=== PATIENT | female | born 2005 | race Caucasian/White ===

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

== ENCOUNTER 2024-06-05 12:44 | Emergency (ER) | payer OTHER, SELFPAY ==
--- NOTE | 2024-06-05 12:49 | ED_ITS ---
HPI - Female Genitourinary General Chief complaint: Urogenital-Female Stated complaint: std testing Time Seen by Provider: 06/05/24 13:05 Source: patient and RN notes reviewed Mode of arrival: ambulatory Limitations: no limitations History of Present Illness ED Provider: Mami Painting PA-C HPI Narrative: This is a 19-year-old female who presents emergency department with complaints of abnormal vaginal discharge x4 days. Patient states that she has noticed some dysuria, urinary frequency and urgency as well as some abnormal vaginal discharge. She states that the vaginal discharge will be white and clear intermittently. She states that she tried boric acid for her symptoms several days ago however does not notice an improvement. She states that her last menses was 2 weeks ago and was normal. Denies any fevers, chills, abdominal pain, nausea, vomiting or diarrhea. She does report she has a new sexual partner. She states that she did go to a urgent care office where she was told she may have a urinary tract infection and sent over a antibiotic which she did not start. No other complaints or concerns at this time. MD elicited complaint: vaginal discharge and possible STD Pertinent past history: STI/STD Onset (ago): day(s) Vaginal discharge: white Vaginal bleeding: none Urinary symptoms: Dysuria, Urgency and Frequency Associated symptoms: denies other symptoms Treatment prior to arrival: OTC vaginal cream Sexual activity: Yes and New Sexual Partners Patient : No Date of Last Menstrual Period: 05/20/24 Related Data Home Medications ?Medication ?Instructions ?Recorded ?Confirmed ondansetron 4 mg disintegrating 4 mg PO Q8H PRN Nausea 05/27/23 05/27/23 tablet Previous Rx's ?Medication ?Instructions ?Recorded doxycycline hyclate 100 mg capsule 100 mg PO BID 7 days #13 caps 06/05/24 metronidazole 500 mg tablet 500 mg PO BID 7 days #14 tabs 06/05/24 Allergies Allergy/AdvReac Type Severity Reaction Status Date / Time No Known Allergies Allergy Verified 06/05/24 12:55 Review of Systems Review of Systems: Yes all other systems are reviewed and are negative Constitutional: Constitutional: Reports as per [facility] Past Medical History Medical History Asthma Date of Last Menstrual Period: 05/20/24 Social History Social History Advance Directives: No Advance Directives Information Provided: Yes Patient : No Physical Exam Vital Signs: Vital Signs: Last Vital Signs Temp 97.8 F 06/05/24 16:23 Pulse 84 06/05/24 16:23 Resp 16 06/05/24 16:23 BP 114/70 06/05/24 16:23 Pulse Ox 98 06/05/24 16:23 O2 Del Method Room Air 06/05/24 16:23 BMI result Body Mass Index 21.2 Const: General: cooperative, comfortable and no acute distress Orientation/consciousness: patient oriented x3 Limitations: no limitations HEENT: Head: Yes normal to inspection, Yes normocephalic and Yes atraumatic Ears: hearing grossly normal bilaterally General nose exam: Normal external nose present Face and sinus: Yes normal facial exam Mouth: Normal oral and palatal mucosa present, oropharynx normal and moist mucous membranes Throat: Yes posterior oropharynx normal Eyes: General: appearance normal, both eyes and all related structures Eyelids: Yes eyelids normal Conjunctivae: conjunctivae normal Sclerae: sclerae normal Pupils: Equal, round and reactive pupils present EOM: EOMs intact bilaterally Neck: Neck: Yes normal visual inspection, Yes full ROM and Yes no lymphadenopathy Lymphatic: no lymphadenopathy noted Chest: Chest palpation & inspection: normal inspection of the chest Resp: Effort & Inspection: normal respiratory effort and able to speak in complete sentences Auscultation: clear to auscultation bilaterally, no crackles, no rales, no rhonchi and no wheezes Cardio: Rate: regular rate Rhythm: regular rhythm Heart sounds: S1 normal heart sound present and S2 normal heart sound present GI: Other: Abdomen is soft, nontender, nondistended Inspection: Yes normal to inspection : Other: Pelvic exam performed with Belkis Govea RN present at all times. Speculum Exam - Vagina: normal appearance of the vagina, normal palpation and abnormal vaginal discharge white and malodorous Speculum Exam - Cervix: normal appearance of the cervix, normal palpation, Cervical os closed and nontender Bimanual exam- vagina & uterus: normal palpation, normal palpation and No Cervical tenderness present Bimanual Exam- Adnexa, other: normal adnexae OB/external & speculum: external exam normal Skin: General skin exam: no rashes or lesions noted Trauma: no lacerations or abrasions Wounds: no wounds Neuro: General: patient oriented x3 and moves all extremities Cranial nerves: Yes Equal, round and reactive pupils present Extrem: General: Yes normal to inspection Right upper extremity: normal to inspection Left upper extremity: normal to inspection Right lower extremity: normal to inspection Left lower extremity: normal to inspection Course Course Course Narrative: This is a Rapid Medical Exam performed in triage by Pamella Tavarez PA-C. Full HPI, ROS and PE to be performed by primary ED provider. 19 year-old F w/ PMHx Nexplanon presenting to the ED c/o concern for STI, went to [facility] yesterday & told she had UTI and WBC in urine and might be something more. Was Rx abx but has not picked them up yet. Admits to discharge, denies bleeding or pain. Admits to new sexual partner. Patient is interested in empiric treatment PE: nontoxic appearing, ambulating with steady gait Plan: STI testing, UA Reevaluation(s) Reevaluation #1: Gonorrhea and chlamydia test came back and is positive. Called patient to inform her. She is aware that she needs to tell all of her sexual partners. Patient understands and agrees with plan. Given strict return precautions, also advised her to repeat testing at [facility] to see if she has cleared the infection. She understands. No additional questions. Time: 17:24 Medications Administered Discontinued Medications Generic Name Dose Route Start Last Admin Trade Name Freq PRN Reason Stop Dose Admin Ceftriaxone Sodium 500 mg/ 0 mg 06/05/24 15:51 06/05/24 16:18 Lidocaine HCl 1 ml IM 06/05/24 15:52 500 kit ONCE ONE Administration Medical Decision Making Medical Decision Making [facility] Narrative: This is a 19-year-old female who presents emergency department with complaints of vaginal discharge, urinary frequency, urgency. On arrival, vital signs within normal limits. She was seen by an urgent care yesterday and was told that she should get tested for further STIs given symptoms. They treated her for urinary tract infection at that time. She states that she is nervous as she has a new partner. Abdomen is soft and nontender, pelvic examination revealing white malodorous vaginal discharge. She has no cervical motion tenderness. No evidence of PID. Differential diagnoses include bacterial vaginosis, chlamydia, gonorrhea, urinary tract infection, PID. Patient would like to be prophylactically treated for STIs. Bacterial vaginosis panel was resulted prior to her departure. Will also treat with Flagyl. Differential Diagnosis Differential Diagnoses: The differential diagnosis associated with the presentation includes See above Admission/Observation Consideration of admission/observation: Escalation of care including admission/observation considered Escalation of care including admission/observation considered however given workup today not warranted at this time. Lab Data MDM Lab Attestation statement: I reviewed the patient's lab results. Labs: Lab Results 06/05/24 Range/Units 14:47 Urine Color Dark Yellow Urine Appearance Cloudy Urine pH 6.0 (5.0-9.0) Ur Specific [place] 1.025 (1.005-1.025) Urine Protein Trace (Neg-Trace) mg/dL Urine Glucose (UA) Negative (Negative) mg/dL Urine Ketones Trace (Negative) mg/dL Urine Blood Negative (Negative) Urine Nitrite Negative (Negative) Ur Leukocyte Esterase Moderate (2+) H (Negative) Urine RBC 0-2 (0-2) /HPF Urine WBC 11-20 H (0-5) /HPF Ur Squamous Epith Cells 3-5 (0-2) /HPF Urine Bacteria 1+ (None Seen) Hyaline Casts 0-2 (0-2) /LPF Urine Test NEGATIVE (NEGATIVE) Chlam trachomat DNA PCR DETECTED A (Not Detect.) N.gonorrhoeae DNA (PCR) DETECTED A (Not Detect.) T. vaginalis (PCR) NOT DETECTED (Not Detect) Bact Vaginosis (PCR) POSITIVE A (Negative) C. krusei/glabrata (PCR) NOT DETECTED (Not Detect) Tresa group (PCR) NOT DETECTED (Not Detect) Discharge Plan Discharge Clinical Impression: Possible exposure to STI, Bacterial vaginosis Patient Disposition: Home, Self-Care Instructions: Bacterial Vaginosis (ED), Postexposure Prophylaxis (ED) Additional Instructions: You were seen in the emergency department for vaginal and urinary symptoms. You did test positive for bacterial vaginosis. This is a non STI related infection. Your gonorrhea and chlamydia testing is still pending. You are not . We will call you with any abnormal results from your testing performed today. Your physical exam was normal. Drink plenty of fluids get plenty of rest. If any new or worsening symptoms occur including but not limited to worsening pain, worsening discharge, please return for re-evaluation. We gave you an injection called ceftriaxone > this is an antibiotic to treat for gonorrhea and chlamydia.. I sent over doxycycline, this is a antibiotic that also treats gonorrhea and chlamydia. Take this twice a day for the next 7 days. Start this today. I also sent over metronidazole, please take this twice a day for the next 7 days. Start this today. Do not drink alcohol while taking this. The medication that was sent over by your other doctor yesterday, please start this tomorrow. This treats for a urinary tract infection. Drink plenty of fluids get plenty of rest. Eat yogurt or any probiotic containing foods as you will be on multiple antibiotics. Prescriptions: New doxycycline hyclate 100 mg capsule 100 mg PO BID 7 Days Qty: 13 0RF metronidazole 500 mg tablet 500 mg PO BID 7 Days Qty: 14 0RF No Action ondansetron 4 mg tablet,disintegrating 4 mg PO Q8H PRN (Reason: Nausea) Interventions: ED Discharge Assessment Last Done: 06/05/24 16:23 Discharge Date/Time: 06/05/24 16:23 Print Language: Sudanese
[2024-06-05 12:50] VITALS: PULSE 99; RESP 18; TEMP 36.4; O2SAT 98; BMI 21.2
[2024-06-05 14:55] LABS: Appearance Urine Cloudy; Color Urine Dark Yellow; Glucose Urine UA Negative (Negative); Leukocyte Esterase Urine Moderate (2+) (Negative); Nitrite Urine Negative (Negative); Specific Gravity - Urine 1.025 (1.005-1.025); UMIC TRIGGER UACC YES; UPreg QC Valid YES; Urine Blood Negative (Negative); Urine Ketones Trace mg/dL (Negative); Urine Pregnancy NEGATIVE (NEGATIVE); Urine Protein Trace mg/dL (Neg-Trace)
[2024-06-05 15:37] LABS: Bacteria Urine 1+ (None Seen); Hyaline Casts Urine 0-2 /LPF (0-2); RBC Urine 0-2 /HPF (0-2); UACC Culture Trigger YES
[2024-06-05 15:59] LABS: Bacterial Vaginosis PCR POSITIVE (Negative); Candida Group PCR NOT DETECTED (Not Detect); Candida glab krusei PCR NOT DETECTED (Not Detect); Trichomonas vaginalis PCR NOT DETECTED (Not Detect)
[2024-06-05] MEDS: cefTRIAXone sodium 500 MG, Lidocaine HCl 1 % MPF 1 ML IM (16:18)
[2024-06-05 16:22] VITALS: BP 114/70; PULSE 84; RESP 16; TEMP 36.6; O2SAT 98
[2024-06-05 16:23] VITALS: BP 114/70; PULSE 84; RESP 16; TEMP 36.6; O2SAT 98
[2024-06-05 16:29] LABS: CT PCR DETECTED (Not Detect.); NG PCR DETECTED (Not Detect.)
== END 2024-06-05 16:23 | disposition home or self-care (01) ==
PROVIDERS: Physician Assistant; Emergency Provider Emergency Medicine
DX: N76.0 Acute vaginitis (principal); A56.02 Chlamydial vulvovaginitis; A54.02 Gonococcal vulvovaginitis, unspecified
CPT/HCPCS: 0352U; 81001; 81025; 87086; 87491; 87591; 96372; 99283; 99284; J0696

== ENCOUNTER 2025-01-05 08:21 | Emergency (ER) | payer OTHER, SELFPAY ==
--- NOTE | ~2025-01-05 | CT_ITS ---
EXAMINATION: CT ABDOMEN PELVIS WITHOUT IV CONTRAST HISTORY: L flank pain COMPARISON: There are no prior studies for comparison. TECHNIQUE: CT scan of the abdomen and pelvis was performed without contrast using standard departmental protocol. Coronal and sagittal reformatted images were generated and reviewed. Oral contrast material was not administered per department protocol. This CT exam was performed with one or more of the following dose reduction techniques: automated exposure control, adjustment of the mA and/or kV according to patient size, use of iterative reconstruction technique. DLP: 387 mGy-cm FINDINGS: LOWER CHEST: The visualized lung bases are clear. There is no pleural effusion. CARDIOVASCULATURE: The heart is normal in size. There is no pericardial effusion. LIVER: The liver is normal in size and contour. The liver has an unremarkable unenhanced appearance. GALLBLADDER / BILE DUCTS: The gallbladder is unremarkable. There is no intra or extrahepatic biliary ductal dilatation. SPLEEN: The spleen is normal in size and has an unremarkable unenhanced appearance. PANCREAS: The pancreas has an unremarkable unenhanced appearance. ADRENAL GLANDS: Unremarkable. KIDNEYS/RETROPERITONEUM: No renal or ureteral calculi are identified. There is no hydronephrosis or hydroureter. LYMPH NODES: No retroperitoneal lymphadenopathy is identified in the abdomen or pelvis. VASCULATURE: The abdominal aorta is normal in caliber. MESENTERY/PERITONEUM: No free fluid. No masses. There is no free intraperitoneal gas. STOMACH: The stomach is unremarkable. SMALL BOWEL: The small bowel is normal in caliber. COLON: The colon is unremarkable. APPENDIX: Normal. URINARY BLADDER/PELVIC ORGANS: The urinary bladder is unremarkable. The uterus and ovaries have an unremarkable unenhanced appearance. BONES / SOFT TISSUES: No suspicious bony or soft tissue abnormalities. CT/CT abdomen pelvis wo IV con IMPRESSION: No evidence of nephrolithiasis or ureteral obstruction. Unremarkable unenhanced CT of the abdomen and pelvis. Electronically signed by: Davin Bond MD 01/05/2025 12:19 PM EDT
[2025-01-05 08:30] VITALS: BP 112/58; PULSE 74; RESP 16; TEMP 36.6; O2SAT 100; BMI 22.3
--- NOTE | 2025-01-05 09:02 | ED_ITS ---
HPI - Nausea/Vomiting/Diarrhea General Chief complaint: Nausea/Vomiting/Diarrhea Stated complaint: Abd pain L side, vomiting Time Seen by Provider: 01/05/25 09:01 Source: patient and RN notes reviewed Mode of arrival: ambulatory Limitations: no limitations History of Present Illness ED Provider: Mami Painting PA-C HPI Narrative: This is a 19-year-old female, with a history of asthma, who presents to the emergency room for evaluation of multiple complaints. Patient states that since Saturday she has had nausea, vomiting, diarrhea, cough, congestion, left-sided abdominal pain, as well as increased vaginal discharge. Patient does report that she was sexually active with a ?fairly new? individual. She states that 1 month ago she went to an urgent care where she was tested for STIs which were all negative, however she did receive treatment for this. She reports some fevers, denies any chills, chest pain, shortness of breath, constipation. No recent travel. Denies any sick contacts. No recent food exposures. No other complaints or concerns at this time. MD elicited complaint: nausea, vomiting and diarrhea Associated nausea: Yes Associated abdominal pain: Yes Location of pain: L flank Pain consistency: constant Severity: moderate Quality: aching Exacerbating factors: none Relieving factors: none Associated symptoms: denies other symptoms Related Data Home Medications ?Medication ?Instructions ?Recorded ?Confirmed ondansetron 4 mg disintegrating 4 mg PO Q8H PRN Nausea 05/27/23 05/27/23 tablet Previous Rx's ?Medication ?Instructions ?Recorded doxycycline hyclate 100 mg capsule 100 mg PO BID 7 days #13 caps 06/05/24 metronidazole 500 mg tablet 500 mg PO BID 7 days #14 tabs 06/05/24 acetaminophen 500 mg tablet 1,000 mg (2 x 500 mg) PO Q6H PRN 01/05/25 (Tylenol Extra Strength) fever or pain #30 tabs ibuprofen 600 mg tablet 600 mg PO Q6H PRN fever or pain 01/05/25 #30 tabs metronidazole 500 mg tablet 500 mg PO BID 7 days #14 tabs 01/05/25 ondansetron 4 mg disintegrating 4 mg PO Q6H PRN nausea and 01/05/25 tablet vomiting #12 tabs Allergies Allergy/AdvReac Type Severity Reaction Status Date / Time No Known Allergies Allergy Verified 03/18/25 08:31 Review of Systems 2 Review of Systems: Yes all other systems are reviewed and are negative Constitutional: Constitutional: Reports as per HPI Gastrointestinal: Gastrointestinal: Reports nausea PMFSH Past Medical History Medical History Asthma Physical Exam 2 Vital Signs: Vital Signs: Last Vital Signs Temp 97.2 F 01/05/25 13:18 Pulse 72 01/05/25 13:18 Resp 14 01/05/25 13:18 BP 102/58 L 01/05/25 13:18 Pulse Ox 99 01/05/25 13:18 O2 Del Method Room Air 01/05/25 13:18 BMI result Body Mass Index 22.3 Const: General: cooperative, comfortable and no acute distress O rientation/consciousness: patient oriented x3 Limitations: no limitations HEENT: Head: Yes normal to inspection, Yes normocephalic and Yes atraumatic Ears: hearing grossly normal bilaterally General nose exam: Normal external nose present Face and sinus: Yes normal facial exam Mouth: Normal oral and palatal mucosa present, oropharynx normal and moist mucous membranes Throat: Yes posterior oropharynx normal Eyes: General: appearance normal, both eyes and all related structures E yelids: Yes eyelids normal Conjunctivae: conjunctivae normal Sclerae: s clerae normal Pupils: Equal, round and reactive pupils present EOM: EOMs intact bilaterally Neck: Neck: Yes normal visual inspection, Yes full ROM and Yes no lymphadenopathy Lymphatic: no lymphadenopathy noted Chest: Chest palpation & inspection: normal inspection of the chest Resp: Effort & Inspection: normal respiratory effort and able to speak in complete sentences Auscultation: clear to auscultation bilaterally, no crackles, no rales, no rhonchi and no wheezes Cardio: Rate: regular rate Rhythm: regular rhythm Heart sounds: S1 normal heart sound present and S2 normal heart sound present GI: Other: Abdomen is soft, with mild tenderness palpation in the left. Inspection: Yes normal to inspection : Other: No CVA tenderness. Pelvic examination performed with Cristino Heredia ED tech present at all times. General: Yes no CVA tenderness External Female Exam: normal external appearance Speculum Exam - Vagina: normal appearance of the vagina, normal palpation and abnormal vaginal discharge yellow (Slight) Speculum Exam - Cervix: normal appearance of the cervix and nontender Bimanual exam- vagina & uterus: normal bimanual exam, normal palpation, No Cervical tenderness present and non-tender Bimanual Exam- Adnexa, other: normal adnexae and no masses Back/Spine/Pelvis: Other: No tenderness palpation along the back. Back: no CVA tenderness Cervical Spine: normal cervical lordosis T horacic/Lumbar Spine: thoracic and lumbar spine normal to inspection Skin: General skin exam: no rashes or lesions noted Trauma: no lacerations or abrasions Wounds: no wounds Neuro: General: patient oriented x3 and moves all extremities Cranial nerves: Yes Equal, round and reactive pupils present Extrem: General: Yes normal to inspection Right upper extremity: normal to inspection Left upper extremity: normal to inspection Right lower extremity: normal to inspection Left lower extremity: normal to inspection Course Reevaluation(s) Reevaluation #1: Preliminary vaginal swabs revealing no yeast or Trichomonas. Urine returns, she has no leukocytosis, stable H&H, chemistry with no significant electrolyte derangement. Upreg negative. She tested negative for flu, RSV, COVID. CT abdomen and pelvis unremarkable. Urine showing moderate blood, trace leuk esterases, and rbc's. She has no urinary symptoms, will defer to urine culture for UTI treatment if this does come back positive. Symptoms may be attributed to bacterial vaginosis > however patient would like to defer treatment until she gets the swabs back. Discussed that if GC and chlamydia does come back positive she would need to return back to the emergency room for treatment. Encouraged increase in hydration, will also discharged on Zofran as needed. Given strict return precautions. She understands and agrees with plan. Patient stable for discharge. Time: 12:25 Reevaluation #2: Swabs returned, negative for gonorrhea, chlamydia, Trichomonas. She tested positive for bacterial vaginosis. Sent over metronidazole. Left message on voicemail. Time: 17:26 Medications Administered Discontinued Medications Generic Name Dose Route Start Last Admin Trade Name Freq PRN Reason Stop Dose Admin Acetaminophen 975 mg 01/05/25 09:22 01/05/25 09:48 Acetaminophen 325 Mg Tablet PO 01/05/25 09:23 975 mg ONCE ONE Administration Ondansetron HCl 4 mg 01/05/25 09:22 01/05/25 09:48 Ondansetron Odt 4 Mg Tab.Rapdis TRANSLINGU 01/05/25 09:23 4 mg ONCE ONE Administration Potassium Chloride 40 meq 01/05/25 10:56 01/05/25 11:09 Potassium Chloride Er 20 Meq Tab.Er.Prt PO 01/05/25 10:57 40 meq ONCE ONE Administration Medical Decision Making Medical Decision Making [facility] Narrative: This is a 19-year-old female who presents emergency department with multiple complaints. Patient reports that she has had headache, nausea, vomiting, diarrhea, and left-sided flank pain x3 days. She also reports that she has had increased vaginal discharge. She does report fairly new partner. She states that [facility] which were all negative. She states that over the last several days she has had increased vaginal drainage. Differential diagnoses include pelvic inflammatory disease, bacterial vaginosis, vaginitis, STI, obstructive uropathy, UTI. She has no CVA tenderness, no back pain, she does have mild left flank pain. Will obtain labs, UA, pelvic examination, abdomen and pelvis. She was eating and drinking however does report some nausea, will medicate with Tylenol and Zofran. Differential Diagnosis Differential Diagnoses: The differential diagnosis associated with the presentation includes See above Lab Data [facility] Lab Attestation statement: I reviewed the patient's lab results. See course comment 01/05/25 09:21 01/05/25 09:21 Labs: Lab Results 01/05/25 01/05/25 Range/Units 09:21 10:32 WBC 7.6 (4.8-10.8) X10*3/uL RBC 4.50 (4.20-5.50) X10*6/uL Hgb 14.4 (12.0-16.0) g/dl Hct 41.4 (37.0-47.0) % MCV 92.0 (80.0-98.0) fL MCH 32.0 (27.0-33.0) pg MCHC 34.8 (31.0-35.0) g/dl RDW 11.7 (11.0-16.0) % Plt Count 227 D (160-400) X10*3/uL MPV 9.2 L (9.4-12.3) fL Immature Gran % (Auto) 0.3 (0.0-0.4) % Neut % (Auto) 70.1 (45-73) % Lymph % (Auto) 20.0 (20-40) % [place] % (Auto) 8.0 (2-11) % Eos % (Auto) 1.3 (0-4) % Baso % (Auto) 0.3 (0-2) % Lymph # (Auto) 1.5 (1.2-4.9) X10*3/uL [place] # (Auto) 0.6 (0.1-1.2) X10*3/uL Eos # (Auto) 0.1 (0.0-0.4) X10*3/uL Baso # (Auto) 0.0 (0.0-0.2) X10*3/uL Abs Immat Gran (auto) 0.02 (0.00-0.03) X10*3/uL Absolute Neuts (auto) 5.3 (2.0-8.3) x10*3/uL Absolute Nucleated RBC 0.000 (0.0-0.012) X10*3/uL Nucleated RBC % (auto) 0.0 (0.0-0.2) /100WBC Sodium 142 (135-145) mmol/L Potassium 3.2 L (3.3-5.1) mmol/L Chloride 108 (96-108) mmol/L Carbon Dioxide 24 (22-29) mmol/L Anion Gap 13 (12-20) BUN 7 L (9-16) mg/dL Creatinine 0.71 (0.5-1.4) mg/dL Estim Creat Clear Calc 118.3 Estimated GFR > 60 Random Glucose 91 (60-115) mg/dL Calcium 8.7 (8.4-10.2) mg/dL Total Bilirubin 0.5 (0.0-1.0) mg/dL AST 17 (5-31) U/L ALT 10 (0-31) U/L Alkaline Phosphatase 75 (39-117) U/L Total Protein 7.4 (6.5-8.0) g/dL Albumin 4.0 (3.5-5.0) g/dL Urine Color Dark Yellow Urine Appearance Clear Urine pH 6.0 (5.0-9.0) Ur Specific [place] >= 1.030 H (1.005-1.025) Urine Protein 30 (1+) H (Neg-Trace) mg/dL Urine Glucose (UA) Negative (Negative) mg/dL Urine Ketones 15 (Negative) mg/dL Urine Blood Moderate (2+) H (Negative) Urine Nitrite Negative (Negative) Ur Leukocyte Esterase Trace H (Negative) Urine RBC 3-5 H (0-2) /HPF Urine WBC 0-5 (0-5) /HPF Ur Squamous Epith Cells 3-5 (0-2) /HPF Urine Bacteria 1+ (None Seen) Hyaline Casts 3-5 (0-2) /LPF Urine Test NEGATIVE (NEGATIVE) Chlam trachomat DNA PCR NOT DETECTED (Not Detect.) Influenza Type A (PCR) NEGATIVE (Negative) Influenza Type B (PCR) NEGATIVE (Negative) N.gonorrhoeae DNA (PCR) NOT DETECTED (Not Detect.) RSV RNA Qual (PCR) NEGATIVE (Negative) SARS-CoV-2 RNA (RT-PCR) NEGATIVE (Negative) T. vaginalis (PCR) NOT DETECTED (Not Detect) Bact vaginosis (PCR) POSITIVE A (Negative) C. krusei/glabrata (PCR) NOT DETECTED (Not Detect) Tresa group (PCR) NOT DETECTED (Not Detect) Radiology Impression Discussion of test interpretation with radiology: I have reviewed the radiologist's reading. Radiologist Impression: Report Number: [id number]: Total DLP = 387.00 mGy-cm EXAMINATION: CT ABDOMEN PELVIS WITHOUT IV CONTRAST HISTORY: L flank pain COMPARISON: There are no prior studies for comparison. TECHNIQUE: CT scan of the abdomen and pelvis was performed without contrast using standard departmental protocol. Coronal and sagittal reformatted images were generated and reviewed. Oral contrast material was not administered per department protocol. This CT exam was performed with one or more of the following dose reduction techniques: automated exposure control, adjustment of the mA and/or kV according to patient size, use of iterative reconstruction technique. DLP: 387 mGy-cm FINDINGS: LOWER CHEST: The visualized lung bases are clear. There is no pleural effusion. CARDIOVASCULATURE: The heart is normal in size. There is no pericardial effusion. LIVER: The liver is normal in size and contour. The liver has an unremarkable unenhanced appearance. GALLBLADDER / BILE DUCTS: The gallbladder is unremarkable. There is no intra or extrahepatic biliary ductal dilatation. SPLEEN: The spleen is normal in size and has an unremarkable unenhanced appearance. PANCREAS: The pancreas has an unremarkable unenhanced appearance. ADRENAL GLANDS: Unremarkable. KIDNEYS/RETROPERITONEUM: No renal or ureteral calculi are identified. There is no hydronephrosis or hydroureter. LYMPH NODES: No retroperitoneal lymphadenopathy is identified in the abdomen or pelvis. VASCULATURE: The abdominal aorta is normal in caliber. MESENTERY/PERITONEUM: No free fluid. No masses. There is no free intraperitoneal gas. STOMACH: The stomach is unremarkable. SMALL BOWEL: The small bowel is normal in caliber. COLON: The colon is unremarkable. APPENDIX: Normal. URINARY BLADDER/PELVIC ORGANS: The urinary bladder is unremarkable. The uterus and ovaries have an unremarkable unenhanced appearance. BONES / SOFT TISSUES: No suspicious bony or soft tissue abnormalities. CT/CT abdomen pelvis wo IV con IMPRESSION: No evidence of nephrolithiasis or ureteral obstruction. Unremarkable unenhanced CT of the abdomen and pelvis. Electronically signed by: Davin Bond MD 01/05/2025 12:19 PM EDT RP Dictated By: Davin Bond Discharge Plan Discharge Clinical Impression: Nausea & vomiting, Bacterial vaginosis Patient Disposition: Home, Self-Care Instructions: Bacterial Vaginosis (ED), Acute Nausea and Vomiting (ED) Additional Instructions: You were seen in the emergency department today. Your symptoms may be caused by a virus. Your workup today was reassuring. We will call you if any of your results are positive. Your potassium was slightly low, we gave you a dose of potassium here in the emergency department. You tested negative for COVID, flu, RSV. Your CT scan does not show any abnormalities. Drink plenty of fluids and get plenty of rest. Your urine does appear to be contaminated, we are holding off on treatment at this time as you would like to be called if this is positive. Please take Tylenol and or ibuprofen as needed. Please also take Zofran as needed for nausea. Prescriptions: New acetaminophen [Tylenol Extra Strength] 500 mg tablet 1,000 mg PO Q6H PRN (Reason: fever or pain) Qty: 30 0RF ibuprofen 600 mg tablet 600 mg PO Q6H PRN (Reason: fever or pain) Qty: 30 0RF ondansetron 4 mg tablet,disintegrating 4 mg PO Q6H PRN (Reason: nausea and vomiting) Qty: 12 0RF metronidazole 500 mg tablet 500 mg PO BID 7 Days Qty: 14 0RF No Action ondansetron 4 mg tablet,disintegrating 4 mg PO Q8H PRN (Reason: Nausea) doxycycline hyclate 100 mg capsule 100 mg PO BID 7 Days Qty: 13 0RF metronidazole 500 mg tablet 500 mg PO BID 7 Days Qty: 14 0RF Stand Alone Forms: Work/School Release Interventions: ED Discharge Assessment Last Done: 01/05/25 13:18 Discharge Date/Time: 01/05/25 13:18 Print Language: Slovak
[2025-01-05 09:28] LABS: MANUAL DIFF FLAG NO
[2025-01-05 09:32] LABS: Appearance Urine Clear; Color Urine Dark Yellow; Glucose Urine UA Negative (Negative); Leukocyte Esterase Urine Trace (Negative); Nitrite Urine Negative (Negative); Specific Gravity - Urine >= 1.030 (1.005-1.025); UMIC TRIGGER UACC YES; Urine Blood Moderate (2+) (Negative); Urine Ketones 15 mg/dL (Negative); Urine Protein 30 (1+) mg/dL (Neg-Trace)
[2025-01-05 09:33] LABS: Basophils Percent Auto 0.3 % (0-2); Eosinophils Absolute Auto 0.1 X10*3/uL (0.0-0.4); Eosinophils Percent Auto 1.3 % (0-4); Hematocrit 41.4 % (37.0-47.0); Hemoglobin 14.4 g/dl (12.0-16.0); Imm Gran Abs Auto 0.02 X10*3/uL (0.00-0.03); Imm Gran Pct Auto 0.3 % (0.0-0.4); Lymphocytes Absolute Auto 1.5 X10*3/uL (1.2-4.9); Mean Corpuscular HGB Conc 34.8 g/dl (31.0-35.0); Mean Platelet Volume 9.2 fL (9.4-12.3); Monocytes Absolute Auto 0.6 X10*3/uL (0.1-1.2); Neutrophils Absolute Auto 5.3 x10*3/uL (2.0-8.3); Neutrophils Percent Auto 70.1 % (45-73); Platelet Count 227 X10*3/uL (160-400); Red Cell Distribution Width 11.7 % (11.0-16.0); White Blood Count 7.6 X10*3/uL (4.8-10.8)
[2025-01-05 09:35] LABS: UPreg QC Valid YES; Urine Pregnancy NEGATIVE (NEGATIVE)
[2025-01-05 09:46] LABS: Alanine Aminotransferase 10 U/L (0-31); Alkaline Phosphatase 75 U/L (39-117); Anion Gap 13 (12-20); Aspartate Amino Transferase 17 U/L (5-31); Bilirubin Total 0.5 mg/dL (0.0-1.0); Blood Urea Nitrogen 7 mg/dL (9-16); Calcium 8.7 mg/dL (8.4-10.2); Carbon Dioxide 24 mmol/L (22-29); Chloride 108 mmol/L (96-108); Creatinine Clr Calc Pharmacy 118.3; Estimated Glomerular Filt Rate > 60; Glucose Random 91 mg/dL (60-115); Potassium 3.2 mmol/L (3.3-5.1); Sodium 142 mmol/L (135-145); Total Protein 7.4 g/dL (6.5-8.0)
[2025-01-05 09:47] LABS: Bacteria Urine 1+ (None Seen); WBC Urine 0-5 /HPF (0-5)
[2025-01-05] MEDS: Ondansetron ODT 4 MG TAB.RAPDIS TRANSLINGU (09:48)
[2025-01-05] MEDS: Acetaminophen 325 MG TABLET 975 MG PO (09:48)
[2025-01-05 10:14] LABS: Influenza A PCR NEGATIVE (Negative); Influenza B PCR NEGATIVE (Negative); Resp Syncy Virus RNA Qual PCR NEGATIVE (Negative); SARS COV2 PCR INHOUSE NEGATIVE (Negative)
[2025-01-05] MEDS: Potassium Chloride ER 20 MEQ TAB.ER.PRT 40 MEQ PO (11:09)
[2025-01-05 12:28] VITALS: BP 102/58; PULSE 72; RESP 14; TEMP 36.2; O2SAT 99
[2025-01-05 13:18] VITALS: BP 102/58; PULSE 72; RESP 14; TEMP 36.2; O2SAT 99
[2025-01-05 13:47] LABS: Bacterial Vaginosis PCR POSITIVE (Negative); Candida Group PCR NOT DETECTED (Not Detect); Candida glab krusei PCR NOT DETECTED (Not Detect); Trichomonas vaginalis PCR NOT DETECTED (Not Detect)
[2025-01-05 14:19] LABS: CT PCR NOT DETECTED (Not Detect.); NG PCR NOT DETECTED (Not Detect.)
== END 2025-01-05 13:18 | disposition home or self-care (01) ==
PROVIDERS: Physician Assistant Medical; Emergency Provider Emergency Medicine Emergency Medical Services
DX: N76.0 Acute vaginitis (principal); R11.2 Nausea with vomiting, unspecified; R10.9 Unspecified abdominal pain; Z03.818 Encounter for observation for suspected exposure to other biological agents ruled out
CPT/HCPCS: 0241U; 36415; 74176; 80053; 81001; 81025; 81515; 85025; 87491; 87591; 99283; 99284

== ENCOUNTER → 2025-01-05 10:56 | Outpatient (BNV) | payer OTHER, SELFPAY | PROVIDERS: Emergency Provider Emergency Medicine Emergency Medical Services; Visit Provider Radiology Diagnostic Radiology | DX: R10.9 Unspecified abdominal pain (principal) | CPT/HCPCS: 74176 ==

== ENCOUNTER 2025-04-17 19:27 | Emergency (ER) | payer OTHER, SELFPAY ==
--- NOTE | 2025-04-17 19:30 | ED_ITS ---
HPI - Dental/Oral General Chief complaint: Abdominal Pain Stated complaint: wisdon teeth out 04/13 not feeling good on meds Time Seen by Provider: 04/17/25 19:31 Source: patient Mode of arrival: ambulatory Limitations: no limitations History of Present Illness ED Provider: Filomena Hudson APRN HPI Narrative: 20 yo female who had wisdom teeth removed on 04/13 and has been taking tylenol PRN, ibuprofen PRN, dexamethasone (5 day course) and amoxicillin (10 day course) here with complaints of upset stomach and nausea since taking her medication. She reports she has been taking them with applesauce but not much food. She denies nausea/vomiting/diarrhea/urinary changes/fevers/chills. Feels her teeth are healing well and her pain is well controlled. Related Data Home Medications ?Medication ?Instructions ?Recorded ?Confirmed ondansetron 4 mg disintegrating 4 mg PO Q8H PRN Nausea 05/27/23 05/27/23 tablet Previous Rx's ?Medication ?Instructions ?Recorded doxycycline hyclate 100 mg capsule 100 mg PO BID 7 day s #13 caps 06/05/24 metronidazole 500 mg tablet 500 mg PO BID 7 days #14 t abs 06/05/24 acetaminophen 500 mg tablet 1,000 mg (2 x 500 mg) PO Q 6H PRN 01/05/25 (Tylenol Extra Strength) fever or pain #30 tabs ibuprofen 600 mg tablet 600 mg PO Q6H PRN fever or p ain 01/05/25 #30 tabs metronidazole 500 mg tablet 500 mg PO BID 7 days #14 t abs 01/05/25 ondansetron 4 mg disintegrating 4 mg PO Q6H PRN nausea and 01/05/25 tablet vomiting #12 tabs omeprazole 20 mg capsule,delayed 20 mg PO DAILY #14 ca ps 04/17/25 release Allergies Allergy/AdvReac Type Severity Reaction Status Date / Time seafood Allergy Hives Verified 04/17/25 19:32 Review of Systems 2 Review of Systems: Yes all other systems are reviewed and are negative Constitutional: Constitutional: Reports no additional constitutional complaints, Denies body ache(s), Denies chills, Denies fever(s), Denies headache(s) and Denies weakness Eyes: Eyes: Reports no additional eye complaints and Denies change in vision ENT: Reports system reviewed and no additional complaints, except as documented, Denies dizziness, Denies headache(s), Denies nasal congestion, Denies nasal discharge and Denies neck pain Cardiovascular: Cardiovascular: Reports no additional cardiovascular complaints, Denies chest pain, Denies leg edema and Denies dyspnea Respiratory: Respiratory: Reports no additional respiratory complaints, Denies cough and Denies dyspnea Gastrointestinal: Gastrointestinal: Reports no additional gastrointestinal complaints, Reports abdominal pain, Denies diarrhea, Reports nausea and Denies vomiting Genitourinary: Genitourinary: Reports no additional female genitourinary complaints and Denies urinary incontinence Musculoskeletal: Musculoskeletal: Reports no additional musculoskeletal complaints, Denies back pain, Denies arthralgias, Denies joint swelling, Denies neck pain, Denies numbness and Denies tingling Integumentary/Breasts: Skin/Breast: Reports system reviewed and no additional complaints, except as docu and Denies rash Neurologic: Reports system reviewed and no additional complaints, except as documented, Denies Abnormal speech present, Denies dizziness, Denies headache(s), Denies numbness, Denies tingling and Denies weakness PMFSH Past Medical History Attestation statement: The following information was validated with the patient. Source: old records reviewed and nursing notes reviewed Medical History Asthma Social History Social History Advance Directives: No Advance Directives Information Provided: No Physical Exam 2 Vital Signs: Vital Signs: Last Vital Signs Temp 97.8 F 04/17/25 19:31 Pulse 108 H 04/17/25 19:31 Resp 16 04/17/25 19:31 BP 93/51 L 04/17/25 19:31 Pulse Ox 96 04/17/25 19:31 O2 Del Method Room Air 04/17/25 19:31 BMI result Body Mass Index 24.3 Const: General: cooperative, healthy appearing, comfortable and no acute distress Orientation/consciousness: patient oriented x3 Limitations: no limitations HEENT: Head: Yes normal to inspection Ears: hearing grossly normal bilaterally General nose exam: Normal external nose present Face and sinus: Yes normal facial exam Mouth: Normal oral and palatal mucosa present Teeth image: 1. healing incision 2. healing incision 3. healing incision 4. healing incision Throat: Yes posterior oropharynx normal Eyes: General: appearance normal, both eyes and all related structures P upils: Equal, round and reactive pupils present Neck: Neck: Yes normal visual inspection Chest: Chest palpation & inspection: normal inspection of the chest Resp: Effort & Inspection: normal respiratory effort Auscultation: clear to auscultation bilaterally Cardio: Rate: regular rate Rhythm: regular rhythm Peripheral pulses: P eripheral pulses 2+ throughout GI: Inspection: Yes normal to inspection Palpation (GI): Soft to palpation and nontender Auscultation: normal bowel sounds Back/Spine/Pelvis: Thoracic/Lumbar Spine: thoracic and lumbar spine normal to inspection Skin: General skin exam: no rashes or lesions noted Neuro: General: patient oriented x3, no focal motor deficits and normal sensation to monofilament Cranial nerves: Yes Equal, round and reactive pupils present Cognition (Neuro): normal cognition Speech: No Abnormal speech present Gait exam (Neuro): Normal gait present Motor exam (neuro): 5/5 motor strength present throughout Extrem: General: Yes normal to inspection Medical Decision Making Medical Decision Making MDM Narrative: 20 yo female who had wisdom teeth removed on 04/13 and has been taking tylenol PRN, ibuprofen PRN, dexamethasone (5 day course) and amoxicillin (10 day course) here with complaints of upset stomach and nausea since taking her medication. She reports she has been taking them with applesauce but not much food. She denies nausea/vomiting/diarrhea/urinary changes/fevers/chills. Feels her teeth are healing well and her pain is well controlled. Mouth healing incisions with no s/s infection. Abdomen soft/nontender with no rebound or guarding. +BS. VSS. Tolerating PO. Likely gastritis vs GERD in the setting of multiple medications which may be irritants. Recommend avoid NSAIDS, taking food with her medications. Given GI cocktail with improvement. Will send PPI Differential Diagnosis Differential Diagnoses: The differential diagnosis associated with the presentation includes Gerd, gastritis Low suspician for acute appendicitis, cholecystitis, SBO Admission/Observation Consideration of admission/observation: Escalation of care including admission/observation considered Low suspician for acute appendicitis, cholecystitis, SBO requiring advanced imaging, admission or consultation Independent Historian Clinical information obtained from an independent historian. History obtained from or confirmed by: Friend Tests considered The following testing was considered but not selected: Low suspician for acute appendicitis, cholecystitis, SBO requiring advanced imaging, Prescription Management I considered prescription management with: Pain Medication Discharge Plan Discharge Clinical Impression: Abdominal pain Patient Disposition: Home, Self-Care Instructions: Abdominal Pain (ED) Additional Instructions: Try to limit taking the ibuprofen Take all the other medications with food Prescriptions: New omeprazole 20 mg capsule,delayed release(DR/EC) 20 mg PO DAILY Qty: 14 0RF No Action ondansetron 4 mg tablet,disintegrating 4 mg PO Q8H PRN (Reason: Nausea) doxycycline hyclate 100 mg capsule 100 mg PO BID 7 Days Qty: 13 0RF metronidazole 500 mg tablet 500 mg PO BID 7 Days Qty: 14 0RF acetaminophen [Tylenol Extra Strength] 500 mg tablet 1,000 mg PO Q6H PRN (Reason: fever or pain) Qty: 30 0RF ibuprofen 600 mg tablet 600 mg PO Q6H PRN (Reason: fever or pain) Qty: 30 0RF ondansetron 4 mg tablet,disintegrating 4 mg PO Q6H PRN (Reason: nausea and vomiting) Qty: 12 0RF metronidazole 500 mg tablet 500 mg PO BID 7 Days Qty: 14 0RF Referrals: Physician,None [Primary Care Provider, Medical] - 10 days Referral Note: as needed Print Language: Italian
[2025-04-17 19:31] VITALS: BP 93/51; PULSE 108; RESP 16; TEMP 36.6; O2SAT 96; BMI 24.3
[2025-04-17] MEDS: Magnesium Hydrox/Alum Hydrox 30 ML ORAL.SUSP PO (19:54)
[2025-04-17] MEDS: Lidocaine HCl Viscous 2 % 15 ML SOLUTION MUCOUS MEM (19:54)
[2025-04-17 20:17] VITALS: BP 93/51; PULSE 108; RESP 16; TEMP 36.6; O2SAT 96
== END 2025-04-17 19:56 | disposition home or self-care (01) ==
PROVIDERS: Emergency Provider Emergency Medicine Emergency Medical Services
DX: R10.2 Pelvic and perineal pain (principal); R11.0 Nausea; Z79.899 Other long term (current) drug therapy
CPT/HCPCS: 99282; 99283

== ENCOUNTER 2025-06-09 15:46 | Outpatient (REF) | payer OTHER, SELFPAY ==
[2025-06-10 12:23] LABS: Bacterial Vaginosis PCR NEGATIVE (Negative); Candida Group PCR DETECTED (Not Detect); Candida glab krusei PCR NOT DETECTED (Not Detect); Trichomonas vaginalis PCR NOT DETECTED (Not Detect)
== END 2025-06-09 15:47 | disposition home or self-care (01) ==
LOC: HO.LAB 15:46
PROVIDERS: Visit Provider Physician Assistant Medical
DX: N89.8 Other specified noninflammatory disorders of vagina (principal); N92.6 Irregular menstruation, unspecified; Z13.89 Encounter for screening for other disorder
CPT/HCPCS: 81003; 81515; 87086; 99212

== ENCOUNTER 2025-06-09 15:46 | Outpatient (AMB) | payer OTHER, SELFPAY ==
[2025-06-09 15:57] VITALS: BP 102/60; PULSE 89; TEMP 37.2; O2SAT 99; BMI 24.1
--- NOTE | 2025-06-09 15:57 | AM.OFFWIN_ITS ---
Intake Vital Signs 06/09/25 15:57 Height 5 ft 5 in Weight 145 lb BMI 24.1 BP 102/60 Blood Pressure Location Lt brachial Position Sitting Pulse 89 Pulse Source Pulse Oximeter Temp 99.0 F Temp Source Oral Pulse Oximetry (%) 99 Oxygen Delivery Method Room Air Intake Visit Reasons: EP Yeast or BV or uti? Intake Note: pt presents with concern for yeast vs BV and concerns for a UTI. c/o diarrhea and frequent menses, recurrent itchy vagina. pt reports h/o BV multiple times Allergies seafood Allergy (Verified 06/09/25 16:01) Hives Do you need a note to return to daycare/school/sports/work: No HPI HPI Comments History of Present Illness Details History of Present Illness - The patient is a 20-year-old female pr esenting with irregular menstrual cycles and recurrent bacterial vaginosis. - Reports menstrual periods occurring tw ice a month, with cycles closer together than usual. - Menstrual blood described as brown and creamy, which is atypical for her. - Frequent bacterial vaginosis episodes, with the last positive test on February 20. - Uses urovaginal probiotics, having com pleted one bottle and started another. - History of trichomoniasis diagnosed la in the emergency room. - Reports watery stools and back pain, u nsure of their relation to current issues. - No pain or burning with urination, and no abdominal pain or cramps reported. - New sexual partner, no intercourse michelle or to symptom onset. - Has no fever, chills, CP, SOB, abd derek n, n/v/d, rashes or lesions. Physical Exam General: Cooperative, healthy appearing, comfortable, no acute distress and well developed Respiratory: Normal respiratory effort and able to speak in complete sentences. Clear to auscultation bilaterally Cardiovascular: Regular rate and rhythm. Normal S1 and S2 GI: Normal to inspection. Soft to palpation and nontender, non-distended. No TTP. No guarding or rebound tenderness noted. Skin: No rashes or lesions noted Patient was informed and verbally consented to the use of an ambient scribe for clinic note documentation during this visit. [facility] Medical History Asthma Review of Systems Const All systems reviewed & are unremarkable except as noted in HPI and below Physical Exam Vital Signs: Last Vital Signs Temp 99.0 F 06/09/25 15:57 Pulse 89 06/09/25 15:57 BP 102/60 06/09/25 15:57 Pulse Ox 99 06/09/25 15:57 Oxygen Delivery Method Room Air 06/09/25 15:57 BMI result Body Mass Index 24.1 Assessment & Plan Assessment & Plan (1) Vaginal discharge: Code(s): N89.8 - Other specified noninflammatory disorders of vagina Plan Most likely BV vs yeast vs UTI UA in the office 2+blood Plan - Urine culture to rule out urinary tract infection. - Vaginal swab for bacterial vaginosis, yeast infection, and trichomoniasis testing. - Establish care with an CHIEF LENDING OFFICER for regular screenings, including Pap smears and STD testing. - Provide a list of OB/GYNs for follow-up and care establishment - Will call with the results of the swab and treat the results. Orders: Orders Bacterial Vaginosis Panel Today N89.8 - Other specified noninflammatory disorders of vagina Urine Culture Today N39.0 - Urinary tract infection, site not specified AMB Urinalysis Automated Today Z13.9 - Encounter for screening, unspecified Medications: Discontinued doxycycline hyclate Discontinued Reason: Patient Completed Course 100 mg PO BID 7 days 13 caps 0RF metronidazole Discontinued Reason: Patient Completed Course 500 mg PO BID 7 days 14 tabs 0RF acetaminophen (Tylenol Extra Strength) Discontinued Reason: Patient Completed Course 1,000 mg (2 x 500 mg) PO Q6H PRN 30 tabs 0RF fever or pain ibuprofen Discontinued Reason: Patient Completed Course 600 mg PO Q6H PRN 30 tabs 0RF fever or pain metronidazole Discontinued Reason: Patient Completed Course 500 mg PO BID 7 days 14 tabs 0RF ondansetron Discontinued Reason: Patient Completed Course 4 mg PO Q6H PRN 12 tabs 0RF nausea and vomiting Coding Level of Care Code Est Pt Level 3 (28220) Diagnoses Vaginal discharge N89.8
--- OUTSIDE RECORDS SUMMARY | 2025-06-09 16:28 | XMS_ITS ---
Author Name [facility] Organization Unknown Care Team Organization Name Specialty Phone Email Start Date End Da te [facility] CHELSI RUSSELL Primary Care 06/27/20232023 [facility] Rimma Schmitz Primary Care 08/28/20222023
--- OUTSIDE RECORDS SUMMARY | 2025-06-09 16:28 | XMS_ITS | Clinical Summary ---
Author Organization [facility] Address [address] [id number] Care Team Providers Care Liquid Sugar Fortifier Name Role Phone Brittany Flaherty MD Primary Care Provider [phone] Brittany Flaherty MD Unavailable [phone] Allergies No known active allergies Medications No known medications Active Problems No known active problems Family History Medical History Relation Name Comments Diabetes Maternal Grandmother Diabetes Paternal Grandmother Relation Name Status Comments Maternal Grandmother Paternal Grandmother Social History Tobacco Use Types Packs/Day Years Used Date Smoking Tobacco: Never Smokeless Tobacco: Never Tobacco Cessation:Counseling Given: Not Answered Comments No Sex and Gender Information Value Date Recorded Sex Assigned at Female 07/30/2022 7:59 PM EDT Legal Sex Female 7:59 PM EDT Gender Identity Not on file Sexual Orientation Not on file Last Filed Vital Signs Vital Sign Reading Time Taken Comments Blood Pressure - - Pulse - - Temperature - - Respiratory Rate - - Oxygen Saturation - - Inhaled Oxygen Concentration - - Weight 56.7 kg (125 lb) 10/09/2022 3:51 PM EST Height 166.5 cm (5' 5.55 ) 10/09/2022 3:51 PM ES T Body Mass Index 20.45 10/09/2022 3:51 PM EST Plan of Treatment Not on file Insurance [facility] [employer] COMM Care Teams Liquid Sugar Fortifier Relationship Specialty Start Date End Date Brittany Flaherty MD [address] [place] [address] PCP - General 05/17/22 Brittany Flaherty MD [address] [place] [address] 05/17/22
== END 2025-06-09 16:41 | disposition home or self-care (01) ==
PROVIDERS: Visit Provider Physician Assistant Medical
DX: N89.8 Other specified noninflammatory disorders of vagina (principal); Z13.9 Encounter for screening, unspecified

== ENCOUNTER 2025-09-30 12:39 | Outpatient (REF) | payer OTHER, SELFPAY ==
[2025-09-30 18:46] LABS: Resp Syncy Virus RNA Qual PCR NEGATIVE (Negative); SARS COV2 PCR INHOUSE NEGATIVE (Negative)
== END 2025-09-30 12:40 | disposition home or self-care (01) ==
LOC: HO.LAB 12:39
PROVIDERS: Visit Provider Nurse Practitioner Family
DX: J06.9 Acute upper respiratory infection, unspecified (principal); R11.2 Nausea with vomiting, unspecified
CPT/HCPCS: 87637; 99212

== ENCOUNTER 2025-09-30 12:39 | Outpatient (AMB) | payer OTHER, SELFPAY ==
[2025-09-30 12:44] VITALS: BP 110/58; PULSE 85; TEMP 36.9; O2SAT 98; BMI 25.3
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
--- OUTSIDE RECORDS SUMMARY | 2025-09-30 18:55 | XMS_ITS | Clinical Summary ---
Author Organization [facility] Address [address] [id number] Care Team Providers Care Barrel Marker Name Role Phone Brittany Flaherty MD Primary Care Provider [phone] Brittany Flaherty MD Unavailable [phone] Allergies No known active allergies Medications No [...] Plan of Treatment Not on file Insurance [facility] PLAN COMM Care Teams Barrel Marker Relationship Specialty Start Date End Date Brittany Flaherty MD [address] [place] [address] PCP - General 05/17/22 Brittany Flaherty MD [address] [place] [address] 05/17/22
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
== END 2025-09-30 13:16 | disposition home or self-care (01) ==
PROVIDERS: Visit Provider Nurse Practitioner Family
DX: J06.9 Acute upper respiratory infection, unspecified (principal)